=== PATIENT | female | born 1985 ===

== ENCOUNTER 2023-11-06 14:28 | Outpatient (AMB) | payer OTHER, SELFPAY ==
--- NOTE | 2023-11-06 14:29 | A.SPINEOV_ITS ---
Intake Visit Reasons: acute bilateral low back pain Intake Note: Ms. Lemon is here today c/o low back pain. Student Financial Aid Manager Required: No Allergies No Known Allergies Allergy (Verified 11/06/23 14:33) Assessment & Plan Assessment & Plan (1) Lumbar radiculopathy: Code(s): M54.16 - Radiculopathy, lumbar region Category: Medical Plan Dear Dr. Taylor, Thank you for referring Preston to our office today. She is a pleasant 38-year-old female comes in today with a chief complaint of low back pain and shooting pains into her anterior thighs. She reports this has been ongoing since 08/29/2023. 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 She states this pain/radiculopathy is accompanied by some numbness in her anterior thighs. She reports that lifting/bending exacerbates her pain. Lying down and sitting helps to alleviate her pain. She is currently taking naproxen and gabapentin to help alleviate her symptoms, with only minimal relief. She denies any issues with urination/bowel production. Denies any saddle anesthesia or difficulty with ambulation. PMH: The patient does not report any past medical history aside from 3 C- sections. Social hx: The patient does not smoke, reports no substance use. Medications: Naproxen, gabapentin. Allergies: NKDA. Physical exam: The patient has 4/5 strength with right-sided hip flexion. The rest of her strength is 5/5 intact. Her reflexes are 2+ intact in her bilateral lower extremities. She reports some sensational deficits in her anterior thighs, predominantly mild numbness. Rest of sensation is intact. She is able to ambulate well and walks without an antalgic gait. (-) bilateral straight leg raise, (-) clonus, (-) Babinski. Imaging review: MRI of the lumbar spine completed at [facility] (patient took the disc home with her) shows an acute paracentral disc herniation at L1-2 with moderate central canal/bilateral foraminal stenosis at this level. There is no other notable pathology on the MRI. There is no signal change and there is still good flow of cerebrospinal fluid. No significant ligamentous injury identified. Impression: Preston is a pleasant 38-year-old female comes in today with a chief complaint of predominantly low back pain with some intermittent numbness reported over her anterior thighs. She denies any saddle anesthesia, bowel or bladder incontinence, and has no myelopathic reflexes on exam. She does have some right-sided iliopsoas weakness but this is her only notable proximal muscle weakness. Her gait is steady, without antalgia or spasticity. For these reasons I believe she is suffering from a resolving herniated disc at L1-2. As of yet, she has not tried any conservative measures. I would like to send her for a 6 weeks of physical therapy and have her call the office after this to report her progress. If her symptoms do not resolve we may see her back in the office to discuss subsequent interventions. Thank you for allowing us to care for your patient. The total time spent with this visit with this patient was 45 minutes reviewing history, physical exam, MRI imaging review, and implementation of treatment plan or further diagnostic testing Duc Medrano MD,PhD [facility] Orders: Orders PT Evaluation and Treatment Today M54.50 - Low back pain, unspecified Coding Level of Care Code New Pt Level 4 (61767) Global (51515) Diagnoses Lumbar radiculopathy M54.16
== END 2023-11-06 16:15 | disposition home or self-care (01) ==
LOC: HO.HNS 14:28
PROVIDERS: Referring Provider Specialist/Technologist Athletic Trainer; Visit Provider Physician Assistant
DX: M54.16 Radiculopathy, lumbar region (principal)
CPT/HCPCS: 99204

== ENCOUNTER → 2023-11-06 14:28 | Outpatient (BNVA) | payer OTHER, SELFPAY | PROVIDERS: Visit Provider Physician Assistant ==